=== PATIENT | male | born 1965 | race Caucasian/White ===

== ENCOUNTER 2022-02-23 01:10 | Emergency (ER) | payer OTHER ==
[~2022-02-23] VITALS: Ht 177.8 cm; Wt 79.4 kg
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
[2022-02-23 01:27] VITALS: BP 141/78
--- NOTE | 2022-02-23 01:45 | NUR ---
BLOOD COLLECTED AND SENT TO LAB
[2022-02-23 02:00] LABS: BASOPHILS # (AUTO) 0.1 K/uL (0.0-0.2); BASOPHILS % (AUTO) 0.7 % (0.0-2.0); EOSINOPHILS % (AUTO) 1.1 % (0.0-6.0); HEMATOCRIT 38 % (39-51); HEMOGLOBIN 13.5 g/dL (13.5-17.5); LYMPHOCYTES # (AUTO) 1.8 K/uL (0.8-4.8); LYMPHOCYTES % (AUTO) 21.6 % (20.0-44.0); MEAN CORPUSCULAR HGB CONC 36 g/dl (31.0-36.0); MEAN CORPUSCULAR VOLUME 87 fL (80-96); MONOCYTES # (AUTO) 0.5 K/uL (0.1-1.30); NEUTROPHILS # (AUTO) 5.8 K/uL (1.8-8.9); NEUTROPHILS % (AUTO) 70.6 % (43.0-81.0); PLATELET COUNT (AUTO) 252 K/uL (150-450); WHITE BLOOD COUNT (AUTO) 8.2 K/uL (4.3-11.0)
[2022-02-23] MEDS ORDERED: ASPIRIN 325 MG TABLET PO ONE (02:00)
[2022-02-23] MEDS ORDERED: ASPIRIN 325 MG TABLET ONE (02:00)
[2022-02-23 02:07] LABS: CALCIUM, SERUM 9.3 mg/dL (8.5-10.1); CARBON DIOXIDE 28 mmol/L (21-32); CHLORIDE 93 mmol/L (98-107); CREATININE 1.5 mg/dL (0.6-1.3); SODIUM SERUM 128 mmol/L (136-145); UREA NITROGEN, BLOOD 25 mg/dL (7-18)
[2022-02-23 02:32] LABS: GLUCOSE 490 mg/dL (74-106)
--- NOTE | 2022-02-23 02:32 | NUR ---
GLU 490
[2022-02-23] MEDS ORDERED: MORPHINE SULFATE INJ 2 MG/ML DISP.SYRIN IV PRN (03:00)
[2022-02-23] MEDS ORDERED: IV NS 0.9% 1,000 ML IV PRN (03:00)
[2022-02-23] MEDS ORDERED: INSULIN REGULAR, HUMAN 100 UNIT/ML 3 ML VIAL SQ PRN (03:00)
[2022-02-23] MEDS ORDERED: ONDANSETRON HCL/PF 4 MG/2 ML VIAL IVP PRN (03:00)
[2022-02-23] MEDS ORDERED: IV NS 0.9% 1,000 ML BAG IV ONE (03:00)
[2022-02-23] MEDS ORDERED: ACETAMINOPHEN 325 MG TABLET PO PRN (03:00)
[2022-02-23] MEDS ORDERED: DEXTROSE 50%-WATER 50 ML DISP.SYRIN IV PRN (03:00)
[2022-02-23] MEDS ORDERED: IV NS 0.9% 500 ML BAG IV ONE (03:30)
[2022-02-23] MEDS ORDERED: INSULIN REGULAR, HUMAN 100 UNIT/ML 10 ML VIAL IV ONE (03:30)
[2022-02-23] MEDS ORDERED: INSULIN REGULAR, HUMAN 100 UNIT/ML 10 ML VIAL ONE (03:41)
--- NOTE | 2022-02-23 03:47 | NUR ---
Pt refused to stay in the hospital.
--- NOTE | 2022-02-23 03:50 | NUR ---
Patient does not wish to proceed with medical care recommended by Dr. Mayo. Patient given information related to possible complications, up to and including , which could occur as a result of leaving the hospital at this time. Patient verbalizes understanding of risks involved due to leaving against medical advice. Patient has signed AMA form.
[2022-02-23] MEDS ORDERED: BLOOD SUGAR DIAGNOSTIC 1 EACH STRIP IN SCH (07:30)
[2022-02-23] MEDS ORDERED: ASPIRIN 81 MG TAB.CHEW PO SCH (09:00)
== END 2022-02-23 04:09 | disposition left against medical advice (07) ==
LOC: ER 01:12
DX: R07.9 Chest pain, unspecified (principal); N17.9 Acute kidney failure, unspecified; E11.65 Type 2 diabetes mellitus with hyperglycemia; Z79.84 Long term (current) use of oral hypoglycemic drugs; I42.2 Other hypertrophic cardiomyopathy; Z53.29 Procedure and treatment not carried out because of patient's decision for other reasons; Z20.822 Contact with and (suspected) exposure to COVID-19; I11.9 Hypertensive heart disease without heart failure
CPT/HCPCS: 36415; 71045; 80048; 82962; 84484 ×2; 85025; 87426; 93005; 96361; 96374; 99285; C9803; J1815

== ENCOUNTER 2022-08-30 13:30 | Emergency (ER) | payer OTHER ==
[~2022-08-30] VITALS: Ht 177.8 cm; Wt 77.1 kg
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
--- NOTE | 2022-08-30 15:45 | NUR ---
SOFTWARE PROGRAMMER AT BEDSIDE FOR XRAY
--- NOTE | 2022-08-30 16:28 | NUR ---
DR. DUQUE SPEAKING WITH DR. GIRON.
--- NOTE | 2022-08-30 16:30 | NUR ---
EMT AT BEDSIDE FOR THUMB SPICA APPLICATION
--- NOTE | 2022-08-30 16:46 | NUR ---
Patient discharged to home in stable condition. Written and verbal after care instructions given. Patient verbalizes understanding of instruction.
[2022-08-30 16:47] VITALS: BP 130/84
== END 2022-08-30 16:47 | disposition home or self-care (01) ==
LOC: ER 13:33
DX: S62.511A Displaced fracture of proximal phalanx of right thumb, initial encounter for closed fracture (principal); I10 Essential (primary) hypertension; E11.9 Type 2 diabetes mellitus without complications; V89.2XXA Person injured in unspecified motor-vehicle accident, traffic, initial encounter; Y93.89 Activity, other specified; Y92.488 Other paved roadways as the place of occurrence of the external cause; Y99.8 Other external cause status
CPT/HCPCS: 73130-TC

== ENCOUNTER 2025-05-28 20:54 | Emergency (ER) | payer BC, OTHER ==
[~2025-05-28] VITALS: Ht 177.8 cm; Wt 72.6 kg
[2025-05-28 22:27] VITALS: BP 130/81; TEMP 98.1; O2SAT 96
[2025-05-28] MEDS ORDERED: TDAP [DIPH/PERTUSSIS/TET] 0.5 ML VIAL IM ONE ×2 (23:00→23:07)
== END 2025-05-28 23:14 | disposition home or self-care (01) ==
LOC: ER 20:58
DX: S61.211A Laceration without foreign body of left index finger without damage to nail, initial encounter (principal); E11.9 Type 2 diabetes mellitus without complications; I10 Essential (primary) hypertension; Z86.79 Personal history of other diseases of the circulatory system; W26.0XXA Contact with knife, initial encounter; Y93.89 Activity, other specified; Y92.89 Other specified places as the place of occurrence of the external cause; Y99.8 Other external cause status
CPT/HCPCS: 90715